=== PATIENT | male | born 1960 | race Caucasian/White ===

== ENCOUNTER 2021-07-30 07:08 | Day surgery (SDC) | payer OTHER ==
[~2021-07-30] VITALS: Ht 175.3 cm; Wt 108.9 kg
[2021-07-30] MEDS ORDERED: LIDOCAINE 2% 100 MG/5 ML UJET TP ONE (08:30)
[2021-07-30] MEDS ORDERED: fentaNYL citrate 0.05 MG/ML VIAL ONE (08:30)
[2021-07-30] MEDS ORDERED: fentaNYL citrate 0.05 MG/ML VIAL IVP ONE (10:30)
== END 2021-07-30 09:40 | disposition home or self-care (01) ==
LOC: MDS 07:08 → MMU 07:09 → MDS 09:40
PROVIDERS: ATTEND Internal Medicine Gastroenterology
DX: Z12.11 Encounter for screening for malignant neoplasm of colon (principal); D12.7 Benign neoplasm of rectosigmoid junction; Z86.010 Personal history of colon polyps; I10 Essential (primary) hypertension; Z79.899 Other long term (current) drug therapy
CPT/HCPCS: 45385; J3010